=== PATIENT | female | born 2000 | race Caucasian/White ===

== ENCOUNTER 2020-04-11 16:36 | Emergency (ER) | payer BC ==
[2020-04-11] MEDS ORDERED: Ibuprofen 200 MG TAB ONE (17:06)
[2020-04-11] MEDS ORDERED: Acetaminophen 500 MG TAB ONE (17:06)
--- NOTE | 2020-04-11 17:23 | RAD ---
Chest AP view INDICATION: Chest pain COMPARISON: None FINDINGS: Lungs: The lungs are clear Cardiac silhouette: The cardiomediastinal silhouette appears within normal limits. Pulmonary vasculature: Normal Pleural spaces: No pleural effusion or pneumothorax is demonstrated. Upper abdomen: No abnormality seen. Osseous structures: No acute osseous abnormality. Additional findings: None. IMPRESSION: No acute cardiopulmonary abnormality.
== END 2020-04-11 18:00 | disposition home or self-care (01) ==
LOC: ERS 16:36
DX: R07.9 Chest pain, unspecified (principal)
CPT/HCPCS: 71045; 93005

== ENCOUNTER 2022-01-03 13:11 | Emergency (ER) | payer BC | END 2022-01-03 13:45 | disposition short-term general hospital (02) | LOC: ERS 13:11 | DX: O47.1 False labor at or after 37 completed weeks of gestation (principal); Z3A.37 37 weeks gestation of pregnancy | CPT/HCPCS: 99284 ==